=== PATIENT | male | born 1960 | race African-American/Black ===

== ENCOUNTER 2017-12-26 13:17 | Inpatient (IN) | payer OTHER ==
[~2017-12-26] VITALS: Ht 180.3 cm; Wt 118.2 kg
[2017-12-26] MEDS ORDERED: LISINOPRIL20 MG PO (13:48)
[2017-12-26] MEDS ORDERED: HYDROCHLOROTHIA25 MG PO (13:49)
[2017-12-26] MEDS ORDERED: NORVASC10 MG PO (13:49)
[2017-12-26] MEDS ORDERED: DOXYCYCLINE HY100 MG PO ×2 (13:50→15:52)
[2017-12-26] MEDS ORDERED: ZANTAC150 MG PO (13:50)
[2017-12-26] MEDS ORDERED: SIMVASTATIN20 MG PO (13:50)
[2017-12-26] MEDS ORDERED: EXPECTORANT200 M1 PO (13:52)
[2017-12-26] MEDS ORDERED: FLOMAX0.4 MG PO (13:54)
[2017-12-26] MEDS ORDERED: ASPIR 8181 M1 PO (13:54)
[2017-12-26] MEDS ORDERED: BACTRIM,SEPT1 TABLET PO (13:55)
[2017-12-26] MEDS ORDERED: UNASYN IV ×2 (13:55→15:51)
[2017-12-26] MEDS ORDERED: KALETRA 200/501 TAB PO (13:56)
[2017-12-26] MEDS ORDERED: INTELENCE200 MG PO (13:56)
[2017-12-26] MEDS ORDERED: VITAMIN E TP (13:57)
[2017-12-26 14:01] LABS: BASOPHIL (%) 0.4 % (0-1); EOSINOPHIL (%) 1.7 % (0-5); EOSINOPHIL COUNT 0.1 K/uL (0-0.3); HEMATOCRIT 18.8 % (38.0-50.0); HEMOGLOBIN 6.3 G/DL (12.5-16.6); IMMATURE GRANULOCYTE (%) 3.1 % (0.0-0.7); LYMPHOCYTE (%) 23.1 % (15-42); LYMPHOCYTE COUNT 1.2 K/uL (1.0-2.8); MCH 28.5 PG (29.0-34.0); MCHC 33.5 G/DL (30.0-36.0); MCV 85.1 FL (86-99); MONOCYTE (%) 10.5 % (3-12); MONOCYTE COUNT 0.5 K/uL (0-0.8); NEUTROPHIL (%) 61.2 % (45-76); NEUTROPHIL COUNT 3.2 K/uL (1.8-6.4); NRBC (%) 0.6 /100 WBC (0-0); PLATELET COUNT 197 K/uL (156-360); RBC DIS.WIDTH-CV 14.8 % (11.8-14.6); RBC DIS.WIDTH-SD 44.5 % (39-53); RED BLOOD COUNT 2.21 M/uL (4.00-5.50); WHITE BLOOD COUNT 5.2 K/uL (4.1-10.2)
[2017-12-26 14:06] LABS: CHLORIDE 108 mEq/L (99-109); POTASSIUM 5.7 mEq/L (3.7-5.4); SODIUM 130 mEq/L (136-147)
[2017-12-26 14:08] LABS: GLUCOSE 88 mg/dL (70-99)
[2017-12-26 14:12] LABS: CREATININE 11.3 mg/dL (0.6-1.3); GFR ESTIMATE (CALCULATED) 5 mL/min/ (58.99-99999)
[2017-12-26 14:24] LABS: UREA NITROGEN (BUN) 104 mg/dL (9-23)
[2017-12-26] MEDS ORDERED: GUAIFENESIN200 M2 PO (15:53)
[2017-12-26 16:11] LABS: ALBUMIN 2.4 g/dL (3.2-4.8)
[2017-12-26 16:14] LABS: TOTAL PROTEIN 6.9 g/dL (6.4-8.3)
[2017-12-26 16:16] LABS: TOTAL BILIRUBIN 0.3 mg/dL (0.0-1.0)
[2017-12-26 16:17] LABS: ALKALINE PHOSPHATASE 46 IU/L (3-129)
[2017-12-26 16:18] LABS: PHOSPHORUS 11.3 mg/dL (2.5-4.9)
[2017-12-26 16:19] LABS: AST (GOT) 21 IU/L (2-34)
[2017-12-26 16:20] LABS: ALT (GPT) 14 IU/L (3-49); DIRECT BILIRUBIN 0.2 mg/dL (0.0-0.3)
[2017-12-26 16:26] LABS: CREATINE KINASE 456 IU/L (1-294)
[2017-12-26 17:10] LABS: IRON < 10 MCG/DL (35-150); TRANSFERRIN (TIBC) 156.3 mg/dL (215-380)
[2017-12-26 20:15] VITALS: BP 173/101
[2017-12-26 21:33] LABS: CHLORIDE 100 MEQ/L (99-109); POTASSIUM 4.1 MEQ/L (3.7-5.4); SODIUM 134 MEQ/L (136-147)
[2017-12-26 21:38] LABS: GFR ESTIMATE (CALCULATED) 10 mL/min/ (58.99-99999); GLUCOSE 82 mg/dL (70-99); UREA NITROGEN (BUN) 66 mg/dL (9-23)
[2017-12-26 21:39] LABS: CREATININE 7.4 MG/DL (0.6-1.3)
[2017-12-26 22:54] LABS: APPEARANCE CLEAR ((CLEAR)); BILIRUBIN NEGATIVE; BLOOD SMALL; COLOR YELLOW ((YELLOW)); GLUCOSE (STRIP) NEGATIVE; KETONES NEGATIVE; LEUKOCYTES NEGATIVE; NITRITE NEGATIVE; PROTEIN (STRIP) 100; UROBILINOGEN 0.2 MG/DL (0.2-1.0)
[2017-12-26 23:01] LABS: BACTERIA RARE /HPF; EPITHELIAL CELLS RARE /HPF; HYALINE CASTS 0-5 /LPF; MUCUS TRACE /LPF; WHITE BLOOD CELLS 0-5 /HPF (0-5)
[2017-12-26 23:17] LABS: UR CREATININE CONCENTRATION 89.8 MG/DL
[2017-12-26 23:55] VITALS: BP 127/69
[2017-12-27 00:05] LABS: EOSINOPHILS,URINE SMALL AMOUNT
[2017-12-27 04:15] VITALS: BP 126/83
[2017-12-27 06:03] LABS: HEMATOCRIT 21.6 % (38.0-50.0); HEMOGLOBIN 7.6 G/DL (12.5-16.6); MCH 29.5 PG (29.0-34.0); MCHC 35.2 G/DL (30.0-36.0); MCV 83.7 FL (86-99); NRBC (%) 0.6 /100 WBC (0-0); PLATELET COUNT 176 K/uL (156-360); RBC DIS.WIDTH-CV 14.3 % (11.8-14.6); RBC DIS.WIDTH-SD 42.4 % (39-53); RED BLOOD COUNT 2.58 M/uL (4.00-5.50); WHITE BLOOD COUNT 4.7 K/uL (4.1-10.2)
[2017-12-27 06:25] LABS: ALBUMIN 2.1 G/DL (3.2-4.8); CHLORIDE 101 MEQ/L (99-109); GFR ESTIMATE (CALCULATED) 8 mL/min/ (58.99-99999); GLUCOSE 123 mg/dL (70-99); PHOSPHORUS 8.2 mg/dL (2.5-4.9); POTASSIUM 4.1 MEQ/L (3.7-5.4); SODIUM 132 MEQ/L (136-147); UREA NITROGEN (BUN) 68 mg/dL (9-23)
[2017-12-27 06:28] LABS: CREATININE 8.7 MG/DL (0.6-1.3)
[2017-12-27 08:39] LABS: FOLIC ACID (FOLATE) 10.5 NG/ML (5.0-22.0)
[2017-12-27 09:19] VITALS: BP 129/73
[2017-12-27 12:29] LABS: HEPATITIS B SURFACE ANTIGEN Nonreactive
[2017-12-27 12:47] LABS: HEPATITIS B SURFACE ANTIBODY REACTIVE
[2017-12-27 17:04] VITALS: BP 134/92
[2017-12-27 20:47] VITALS: BP 129/73
[2017-12-27 23:01] VITALS: BP 138/75
[2017-12-28 04:57] VITALS: BP 138/76
[2017-12-28 05:35] LABS: BASOPHIL (%) 0.6 % (0-1); EOSINOPHIL (%) 2.7 % (0-5); EOSINOPHIL COUNT 0.1 K/uL (0-0.3); HEMOGLOBIN 7.8 G/DL (12.5-16.6); IMMATURE GRANULOCYTE (%) 1.9 % (0.0-0.7); LYMPHOCYTE (%) 28.6 % (15-42); LYMPHOCYTE COUNT 1.5 K/uL (1.0-2.8); MCH 27.9 PG (29.0-34.0); MCHC 32.5 G/DL (30.0-36.0); MCV 85.7 FL (86-99); MONOCYTE (%) 12.9 % (3-12); MONOCYTE COUNT 0.7 K/uL (0-0.8); NEUTROPHIL (%) 53.3 % (45-76); NEUTROPHIL COUNT 2.8 K/uL (1.8-6.4); NRBC (%) 0.4 /100 WBC (0-0); PLATELET COUNT 186 K/uL (156-360); RBC DIS.WIDTH-CV 14.5 % (11.8-14.6); RBC DIS.WIDTH-SD 43.7 % (39-53); WHITE BLOOD COUNT 5.2 K/uL (4.1-10.2)
== END 2017-12-28 05:20 | disposition short-term general hospital (02) | DRG 682 ==
LOC: EME 13:17 → EDOF 15:09 → 4EAST 15:09 → ENRESERV 15:10 → EDOF 15:24 → ENRESERV 15:57 → 4EAST 20:18
PROVIDERS: Emergency Medicine; Family Medicine; Internal Medicine
PROC: 30233N1 Transfusion of Nonautologous Red Blood Cells into Peripheral Vein, Percutaneous Approach (ICD-10-PCS; principal; 2017-12-26)
PROC: 02HV33Z Insertion of Infusion Device into Superior Vena Cava, Percutaneous Approach (ICD-10-PCS; principal; 2017-12-26)
PROC: 5A1D70Z Performance of Urinary Filtration, Intermittent, Less than 6 Hours Per Day (ICD-10-PCS; principal; 2017-12-26)
DX: N17.9 Acute kidney failure, unspecified (principal); J18.9 Pneumonia, unspecified organism; E86.0 Dehydration; E87.5 Hyperkalemia; E87.1 Hypo-osmolality and hyponatremia; E87.2 Acidosis; K21.9 Gastro-esophageal reflux disease without esophagitis; E83.51 Hypocalcemia; I12.0 Hypertensive chronic kidney disease with stage 5 chronic kidney disease or end stage renal disease; N18.6 End stage renal disease; E83.39 Other disorders of phosphorus metabolism; D50.9 Iron deficiency anemia, unspecified; E87.79 Other fluid overload; Z21 Asymptomatic human immunodeficiency virus [HIV] infection status; D64.9 Anemia, unspecified; N40.0 Benign prostatic hyperplasia without lower urinary tract symptoms; Z82.49 Family history of ischemic heart disease and other diseases of the circulatory system
CPT/HCPCS: 71045; 76770; 80048; 80048 91; 80069; 80076; 81003; 82436; 82550; 82570; 82607; 82746; 83540; 83605; 84100; 84156; 84300; 84466; 84550; 85025; 85027; 86706; 86850; 86900; 86901; 86920; 87070; 87205; 87340; 87449; 87641; 89190; 93005; 94640; 99202; 99281; 99285; C1752; J0692; J1644; J1756; J7050; P9016